=== PATIENT | female | born 1955 | race Hispanic/Latino ===

== ENCOUNTER 2017-08-17 21:18 | Emergency (ER) | payer BC ==
[2017-08-17 21:51] VITALS: BP 176/85; PULSE 71; RESP 18; TEMP 98.8; O2SAT 100
[2017-08-17] MEDS ORDERED: Sodium Chloride 0.9% 500 ML IV STA (22:36)
--- NOTE | 2017-08-17 23:11 | ED PDOC ---
HPI: Skin/Bite Injury Time Seen by Provider: 08/17/17 21:54 Chief Complaint (Nursing): Abnormal Skin Integrity Chief Complaint (Provider): shingles History Per: Patient History/Exam Limitations: no limitations Onset/Duration Of Symptoms: Days (2x) Current Symptoms Are (Timing): Still Present Location Of Injury: Left: Back (shingles), Chest (shingles) Quality Of Symptoms: Painful, Itching Additional Complaint(s): 61 year old female presents to the ED complaining of a shingles onset two days ago on breast continuing to the back. Reports on Monday, she felt body pain and felt slightly itchy with fever. She visited her PMD who prescribed medication for shingles but has not taken them. Reports she had shingles in 2014 on her face and eyes and was admitted to the hospital. Currently is in the ED because the rash has worsen and the pain has increased. PMD: Jian Grijalva Past Medical History Reviewed: Historical Data, Nursing Documentation, Vital Signs Vital Signs: Last Vital Signs Temp 98.8 F 08/17/17 21:48 Pulse 71 08/17/17 21:48 Resp 18 08/17/17 21:48 BP 176/85 H 08/17/17 21:48 Pulse Ox 100 08/17/17 23:18 - Medical History PMH: Back Problems, HTN, Chronic Kidney Disease - Surgical History Surgical History: Cholecystectomy - Family History Family History: States: Unknown Family Hx - Social History Current smoker - smoking cessation education provided: No Alcohol: None Drugs: Denies - Home Medications Home Medications: Ambulatory Orders Medication Instructions Recorded Allopurinol 200 mg PO DAILY 12/22/14 Aspirin [Aspirin EC] 81 mg PO DAILY 12/22/14 Cholecalciferol (Vitamin D3) 5,000 unit PO DAILY 12/22/14 [Vitamin D3] Erythromycin 0.5% [Erythromycin 1 appl LEFTEYE BID 12/22/14 0.5% Oint] Fentanyl [Duragesic] 25 mcg TD Q72H 12/22/14 Hydrochlorothiazide/Valsarta 1 tab PO DAILY 12/22/14 [Diovan Hct 12.5 mg-160 mg] Lansoprazole [Prevacid] 30 mg PO DAILY 12/22/14 Lidocaine 5% [Lidoderm] 1 patch TOP DAILY PRN 12/22/14 Liraglutide [Victoza 2-Lobo] 0.6 mg SC DAILY 12/22/14 Silver Sulfadiazine 1% [Silvadene 1 gm TP BID #0 jar 12/25/14 1%] NIFEdipine ER [Procardia XL] 90 mg PO DAILY 10/16/15 Ciprofloxacin [Cipro] 500 mg PO BID #14 tab 10/20/15 Linagliptin [Tradjenta] 5 mg PO DAILY #30 tablet 10/20/15 Mesalamine [Asacol HD 800mg] 800 mg PO TID #0 tcp 10/20/15 Metronidazole [Flagyl] 500 mg PO TID #21 tab 10/20/15 Sucralfate [Carafate] 10 ml PO TID #1 bottle 10/20/15 predniSONE [Prednisone] 10 mg PO DAILY #10 tab 10/20/15 Calamine/Pramoxine [Caladryl] 180 ml EXT PRN PRN #1 bottle 08/17/17 Gabapentin [Neurontin] 300 mg PO TID #30 cap 08/17/17 Valacyclovir HCl [Valtrex] 1,000 mg PO TID #21 tablet 08/17/17 predniSONE [Prednisone] 60 mg PO DAILY 10 Days tab 08/17/17 - Allergies Allergies/Adverse Reactions: Allergies Allergy/AdvReac Type Severity Reaction Status Date / Time No Known Allergies Allergy Verified 10/16/15 16:08 Review of Systems ROS Statement: Except As Marked, All Systems Reviewed And Found Negative (As per HPI, otherwise negative) Constitutional: Positive for: Fever Musculoskeletal: Positive for: Other (body pain) Skin: Positive for: Rash (breast and back) Physical Exam - Reviewed Nursing Documentation Reviewed: Yes Vital Signs Reviewed: Yes - Physical Exam Appears: Positive for: In Acute Distress (mild; painful) Head Exam: Positive for: ATRAUMATIC, NORMAL INSPECTION, NORMOCEPHALIC Skin: Positive for: Rash (erythematous; extending from lower left breast across lateral chest wall to back; consistent w/zoster ) Eye Exam: Positive for: EOMI, PERRL Cardiovascular/Chest: Positive for: Regular Rate, Rhythm. Negative for: Murmur Respiratory: Positive for: Normal Breath Sounds. Negative for: Accessory Muscle Use, Rales, Rhonchi, Respiratory Distress Gastrointestinal/Abdominal: Positive for: Soft. Negative for: Tenderness Back: Positive for: Normal Inspection. Negative for: Decreased ROM Extremity: Positive for: Normal ROM. Negative for: Deformity Lymphatic: Negative for: Adenopathy Neurologic/Psych: Positive for: Alert. Negative for: Motor/Sensory Deficits - ECG O2 Sat by Pulse Oximetry: 100 (RA) Pulse Ox Interpretation: Normal Medical Decision Making Medical Decision Making: Time: 2231 Initial Impression: shingles Initial Plan: --Chest Portable [RAD] --Normal Saline 500 mls/hr --SOLU-Medrol 125mg --Zovirax 670mg Scribe Attestation: Documented by Gina Charles, acting as a scribe for Liudmila Domínguez MD Provider Scribe Attestation: All medical record entries made by the Scribe were at my direction and personally dictated by me. I have reviewed the chart and agree that the record accurately reflects my personal performance of the history, physical exam, medical decision making, and the department course for this patient. I have also personally directed, reviewed, and agree with the discharge instructions and disposition. Disposition - Clinical Impression Clinical Impression: Herpes zoster - Disposition Referrals: Jian Grijalva MD [Family Provider] - 08/18/17 (FOLLOW UP WITH DR GRIJALVA TOMORROW) Disposition: Routine/Home Disposition Time: 23:00 Condition: STABLE Prescriptions: Calamine/Pramoxine [Caladryl] 180 ml EXT PRN PRN #1 bottle PRN Reason: Itching / Pruritus Gabapentin [Neurontin] 300 mg PO TID #30 cap predniSONE [Prednisone] 60 mg PO DAILY 10 Days tab Valacyclovir HCl [Valtrex] 1,000 mg PO TID #21 tablet Instructions: Shingles Forms: [employer] ([place])
--- NOTE | 2017-08-18 09:43 | RAD ---
HISTORY: cough COMPARISON: 12/22/2014. FINDINGS: LUNGS: The lungs are clear. PLEURA: No significant pleural effusion identified, no pneumothorax apparent. CARDIOVASCULAR: Normal. OSSEOUS STRUCTURES: There is an S-shaped scoliosis in the thoracolumbar spine. VISUALIZED UPPER ABDOMEN: Normal. OTHER FINDINGS: None. IMPRESSION: No active pulmonary disease.
== END 2017-08-18 00:26 | disposition home or self-care (01) ==
LOC: H.ER 21:18
DX: B02.9 Zoster without complications (principal); I12.9 Hypertensive chronic kidney disease with stage 1 through stage 4 chronic kidney disease, or unspecified chronic kidney disease
CPT/HCPCS: 71045; 96374; 99282; J2930